=== PATIENT | female | born 1950 | race Caucasian/White ===

== ENCOUNTER 2016-12-18 16:15 | Observation (INO) | payer OTHER, MEDICARE ==
[2016-12-18] MEDS ORDERED: LOMOTIL PO PRN (16:54)
[2016-12-18 17:30] LABS: ALANINE AMINOTRANSFERASE 19 Units/L (12-78); ALBUMIN 2.9 g/dL (3.4-5.0); ALKALINE PHOSPHATASE 81 Units/L (46-116); ASPARTATE AMINO TRANSFERASE 27 Units/L (15-37); BLOOD UREA NITROGEN 23 mg/dL (7-18); CALCIUM 9.2 mg/dL (8.5-10.1); CHLORIDE 101 mmol/L (98-107); COR CA(FOR HYPOALB) 10.1 mg/dL (8.5-10.1); COR NA(FOR HYPERGLY) 135 mmol/L (136-145); CREATININE 0.95 mg/dL (0.55-1.02); GLUCOSE 194 mg/dL (65-99); SODIUM 133 mmol/L (136-145); TOTAL PROTEIN 7.5 g/dL (6.4-8.2); eGFR BLACK RACES > 60 (>60); eGFR NON BLACK RACES > 60 (>60)
[2016-12-18 17:36] VITALS: BMI 30.6
[2016-12-18 17:47] LABS: BASOPHILS # (AUTO) 0.1 X10^3/uL (0.0-0.1); EOSINOPHILS % (AUTO) 0.2 % (0.9-2.9); HEMATOCRIT 43.2 % (36.0-47.0); HEMOGLOBIN 14.7 g/dL (12.0-16.0); LYMPHOCYTES # (AUTO) 0.8 X10^3/uL (1.3-2.9); LYMPHOCYTES % (AUTO) 11.4 % (21.0-51.0); MEAN CORPUSCULAR HEMOGLOBIN 31.2 pg (27.0-34.0); MEAN CORPUSCULAR VOLUME 91.6 fL (80.0-100.0); MEAN PLATELET VOLUME 9.7 fL (7.4-11.0); MONOCYTES % (AUTO) 13.9 % (0.0-13.0); NEUTROPHILS # (AUTO) 5.1 x10^3/uL (2.2-4.8); NEUTROPHILS % (AUTO) 73.5 % (42.0-75.0); PLATELET COUNT 249 X10^3/uL (150.0-450.0); RED BLOOD COUNT 4.72 X10^6/uL (3.5-5.4); RED CELL DISTRIBUTION WIDTH 15.1 % (11.6-16.5); WHITE BLOOD COUNT 6.9 X10^3/uL (3.6-10.0)
--- NOTE | 2016-12-18 18:40 | RAD ---
HISTORY: Abdominal pain/diarrhea. Study: Acute abdominal series Comparison: CT chest dated November 17, [address] abdomen/pelvis dated January 17, 2016. Findings: The trachea is midline. The cardiac silhouette is unremarkable. Scarring within the left upper lob e appears unchanged given technique. No obvious focal consolidation, pleural effusion, or pneumothor ax. Surgical clips overlying the left breast and axilla. The bony thorax is unremarkable. Flat plate and upright evaluation of the abdomen demonstrates a nonspecific/nonobstructive bowel gas pattern with air and stool to the level of the rectum. No obvious free air. Surgical clips within t he right upper quadrant. No pathological soft tissue mass or calcification can be observed. The bon y structures are grossly intact. IMPRESSION: 1. No acute cardiopulmonary disease. 2. No evidence for acute abdominal pathology identified. Reported By:
[2016-12-18] MEDS: NS 1000 ML 1,000 ML IV SCH (18:45)
[2016-12-18] MEDS: FLAGYL IV PREMIX 500 MG BAG 500 MG/100 ML BAG IV SCH ×2 (18:45→21:12)
[2016-12-18 21:03] LABS: BILIRUBIN,URINE NEGATIVE (NEGATIVE); BLOOD/HEMOGLOBIN,URINE 3+ (NEGATIVE); GLUCOSE, URINE 4+ (NEGATIVE); KETONES,URINE 2+ (NEGATIVE); LEUKOCYTE ESTERASE ,URINE 2+ (NEGATIVE); NITRITES,URINE NEGATIVE (NEGATIVE); PROTEIN,URINE 2+ (NEGATIVE); UROBILINOGEN,URINE NORMAL (NORMAL)
[2016-12-18 21:09] LABS: APPEARANCE,URINE CLOUDY (CLEAR); COLOR,URINE YELLOW (YELLOW)
[2016-12-18 21:10] LABS: BACTERIA,URINE 3+ /HPF (NEGATIVE); SQUAMOUS EPITHELIAL CELL,UR RARE /HPF (NEGATIVE)
[2016-12-18 21:56] LABS: CRYPTOSPORIDIUM PARVUM ANTIGEN NEGATIVE (NEGATIVE); GIARDIA LAMBLIA ANTIGEN NEGATIVE (NEGATIVE)
[2016-12-18] MEDS ORDERED: NORCO 5/325 MG TAB PO PRN (23:45)
[2016-12-19] MEDS: NS 1000 ML 1,000 ML IV SCH ×2 (03:51→20:58)
[2016-12-19] MEDS: FLAGYL IV PREMIX 500 MG BAG 500 MG/100 ML BAG IV SCH (03:51)
[2016-12-19 05:35] LABS: EOSINOPHILS % (AUTO) 0.5 % (0.9-2.9); HEMATOCRIT 39.4 % (36.0-47.0); HEMOGLOBIN 13.3 g/dL (12.0-16.0); LYMPHOCYTES % (AUTO) 21.3 % (21.0-51.0); MEAN CORPUSCULAR HEMOGLOBIN 30.8 pg (27.0-34.0); MEAN CORPUSCULAR HGB CONC 33.9 g/dL (33.0-35.0); MEAN PLATELET VOLUME 10.7 fL (7.4-11.0); MONOCYTES # (AUTO) 0.8 x10^3/uL (0.3-0.8); MONOCYTES % (AUTO) 16.8 % (0.0-13.0); NEUTROPHILS # (AUTO) 2.9 x10^3/uL (2.2-4.8); NEUTROPHILS % (AUTO) 60.4 % (42.0-75.0); PLATELET COUNT 234 X10^3/uL (150.0-450.0); RED BLOOD COUNT 4.33 X10^6/uL (3.5-5.4); RED CELL DISTRIBUTION WIDTH 15.3 % (11.6-16.5); WHITE BLOOD COUNT 4.9 X10^3/uL (3.6-10.0)
[2016-12-19 05:37] LABS: ALANINE AMINOTRANSFERASE 18 Units/L (12-78); ALBUMIN 2.5 g/dL (3.4-5.0); ALKALINE PHOSPHATASE 73 Units/L (46-116); ASPARTATE AMINO TRANSFERASE 14 Units/L (15-37); BLOOD UREA NITROGEN 18 mg/dL (7-18); CALCIUM 8.1 mg/dL (8.5-10.1); CARBON DIOXIDE 23.2 mmol/L (21-32); CHLORIDE 103 mmol/L (98-107); COR CA(FOR HYPOALB) 9.3 mg/dL (8.5-10.1); COR NA(FOR HYPERGLY) 144 mmol/L (136-145); CREATININE 1.05 mg/dL (0.55-1.02); GLUCOSE 374 mg/dL (65-99); SODIUM 137 mmol/L (136-145); TOTAL PROTEIN 6.4 g/dL (6.4-8.2); eGFR BLACK RACES > 60 (>60); eGFR NON BLACK RACES 56 (>60)
[2016-12-19] MEDS ORDERED: K-LYTE EFFERVESCENT PO PRN (05:43)
[2016-12-19] MEDS ORDERED: K-RIDER 10 MEQ/NS 100 ML 10 MEQ/100 ML BAG IV PRN (05:43)
[2016-12-19] MEDS ORDERED: POTASSIUM CHLORIDE LIQ 20 MEQ UDC PO PRN (05:43)
[2016-12-19] MEDS: K-DUR TAB 20 MEQ PO PRN ×2 (06:06→23:27)
[2016-12-19] MEDS: MAGNESIUM SULFATE 1 GM/100 mL PREMIX 1 GM/100 ML BAG IV SCH ×2 (08:35→10:31)
[2016-12-19] MEDS: CIPRO IV 400 MG PREMIX* 400 MG/200 ML IV.SOLN. IV SCH ×2 (12:32→21:01)
[2016-12-19] MEDS ORDERED: HumuLIN R SUBCUT PRN (13:06)
[2016-12-19] MEDS ORDERED: OXYBUTYNIN CHLORIDE PO SCH (13:15)
--- NOTE | 2016-12-19 13:18 | DR.UPDATE ---
H&P Update History and Physical Update: WAS SEEN IN OUR OFFICE TODAY. A H&P WAS COMPLETED PRIOR TO ADMISSION. PATIENT HAS BEEN SEEN AND EXAMINED WITH NO CHANGES NOTED. Changes noted: NO Yes with the following:
[2016-12-19] MEDS ORDERED: COREG TAB 6.25 MG PO SCH (14:00)
[2016-12-19] MEDS ORDERED: SYNTHROID 25 mcg TAB PO SCH (14:00)
[2016-12-19] MEDS: LYRICA CAP 100 MG PO SCH ×2 (14:38→21:00)
[2016-12-19] MEDS: ZOCOR TAB 20 MG PO SCH (14:38)
[2016-12-19] MEDS: PEPCID 20 MG IV PREMIX* 20 MG/50 ML BAG IV SCH ×2 (14:38→21:00)
[2016-12-19] MEDS: ARIMIDEX PO SCH (14:46)
[2016-12-19] MEDS ORDERED: HumuLIN R SUBCUT ONE (19:15)
--- NOTE | 2016-12-19 19:27 | PCM.PROG ---
Progress Note - Progress Note for Day of Date: 12/19/16 - Subjective Subjective: WAS A DIRECT ADMISSION YESTERDAY FOR DEYHYDRATION, DIARRHEA, AND HYPOTENSION. SHE IS ALERT AND ORIENTED ON MORNING ROUNDS. PATIENT IS NOTED WITH COMPLAINTS OF ABDOMINAL PAIN AND REPORTS SEVERAL LOOSE BOWEL MOVEMENTS THROUGHOUT THE NIGHT. VITALS THIS AM WERE 98.5-80-20-93%-105/53. CBC REPORTS WBC 4.9, RBC 4.33, HGB 13.3, HCT 39.4. CMP REPORTS SODIUM 137, POTASSIUM 2.8, BUN 18, CREATININE 1.05, CALCIUM 8.21, AST 14, ALT 18, ALBUMIN 2.5, GLUCOSE 374, MAGESIUM 1.3. ABDOMINAL SERIES NORMAL. STOOL WAS POSITIVE FOR OCCULT BLOOD. CULTURE WAS POSITIVE FOR CAMPYLOBACTER SPECIES. WE WILL START CIPRO 400MG IV Q12H, DISCONTINUE FLAGYL IV, WE WILL RECHECK LABS AND FOLLOW UP WITH PATIENT IN AM. - Past Medical Family Social History Past Med/Fam/Surg Hx: No changes since H&P Allergies: Allergies No Known Drug Allergies Allergy (Verified 12/18/16 16:53) - Review of Systems ROS: No change since H&P - Vital Signs and I&O's Vital Signs: Temperature 97.9 F Pulse Rate [Right Radial] 77 Respiratory Rate 20 Blood Pressure [Right Arm] 97/54 Blood Pressure 128/65 O2 Sat by Pulse Oximetry 95 Intake and Output: Intake & Output 12/17/16 12/18/16 12/19/16 12/20/16 11:59 11:59 11:59 11:59 Intake Total 980 360 Balance 980 360 - Physical Exam Oriented: Normal. negative: Time, Person, Place, Not Oriented, Unable to test, Other Eyes: Normal. negative: Blurred Vision, Diplopia, Discharge, Pain, Redness, Photophobia, Other Ear: Normal. negative: Right, Left, Swelling, Ecchymosis, Hemotypanum, Abrasion , Laceration Nose: Normal. negative: Injected, Discharge, Blood, Other Throat: Normal. negative: Tonsillar Hypertrophy, Red, Exudate, Dry, Other Respiratory: Normal. negative: Right, Left, Generalized, Superior, Inferior, Diminished, Wheezes, Rales, Rhonchi, OTHER Cardiovascular: Normal. negative: Tachycardia, Bradycardia, Irregular, S3, S4, Systolic, Diastolic, Murmur, Edema, Other : Normal. negative: Dysuria, Hematuria, Frequency, Discharge, Testicular Pain , Bleeding, , Other Auscultation: Bowel Sounds: Normal. negative: Bruit, Absent, Increased, Decreased, High Pitched, Other Palpation: Normal Tenderness: Diffuse. negative: Normal, RUQ, RLQ, LUQ, LLQ, Epigastric, Periumbilical, Suprapubic, Mild, Moderate, Severe, Rebound, Guarding, Rigidity, Other Skin: Normal. negative: Decreased Turgur, Rash, Papular, Macular, Maculopapular , Vesicular, Pustular, Petechial, Red, Tender, Hot, Diaphoresis, Wound, Bruising , Ecchymosis, Other Musculoskeletal: Normal. negative: Right, Left, Shoulder, Clavicle, Arm, Elbow , Forearm, Wrist, Hand, Hip, Thigh, Knee, Leg, Ankle, Foot, Back:Thoracic, Back: Lumbar, Back:Midline, Back:Paraspinous, Pelvis, Swelling, Tender, Deformity, Pulse Deficit, Motor Deficit, Sensory Deficit, Instability, Crepitance Psychiatric: Normal. negative: Anxiety, Depression, Agitation, Other Mood Description: Calm. negative: Angry, Apathetic, Depressed, Fearful, Flat, Happy, Hostile, Sad, Suspicious, Withdrawn, Anxious, Appropriate, Labile Affect: Normal. negative: Angry, Anxious, Depressed, Flat, Hysterical, Quiet, Violent Speech Pattern: Clear, Appropriate - Laboratory and Diagnostics Result Diagrams: 12/19/16 04:05 12/19/16 18:25 Labs: 12/18/16 20:55 Urine,Clean Catch Urine Culture - Preliminary 12/18/16 20:55 Stool Stool Culture - Preliminary Campylobacter Species 12/18/16 20:55 Stool - Final Laboratory WBC 4.9 X10^3/uL (3.6-10.0) 12/19/16 04:05 RBC 4.33 X10^6/uL (3.5-5.4) 12/19/16 04:05 Hgb 13.3 g/dL (12.0-16.0) 12/19/16 04:05 Hct 39.4 % (36.0-47.0) 12/19/16 04:05 MCV 91.0 fL (80.0-100.0) 12/19/16 04:05 MCH 30.8 pg (27.0-34.0) 12/19/16 04:05 MCHC 33.9 g/dL (33.0-35.0) 12/19/16 04:05 RDW 15.3 % (11.6-16.5) 12/19/16 04:05 Plt Count 234 X10^3/uL (150.0-450.0) 12/19/16 04:05 MPV 10.7 fL (7.4-11.0) 12/19/16 04:05 Neut % 60.4 % (42.0-75.0) 12/19/16 04:05 Lymph % 21.3 % (21.0-51.0) 12/19/16 04:05 [place] % 16.8 % (0.0-13.0) H 12/19/16 04:05 Eos % 0.5 % (0.9-2.9) L 12/19/16 04:05 Baso % 1.0 % (0.2-1.0) 12/19/16 04:05 Neut # 2.9 x10^3/uL (2.2-4.8) 12/19/16 04:05 Lymph # 1.0 X10^3/uL (1.3-2.9) L 12/19/16 04:05 [place] # 0.8 x10^3/uL (0.3-0.8) 12/19/16 04:05 Eos # 0.0 x10^3/uL (0.0-0.2) 12/19/16 04:05 Baso # 0.0 X10^3/uL (0.0-0.1) 12/19/16 04:05 Absolute Nucleated RBC 0.1 /100WBC 12/19/16 04:05 Sodium 137 mmol/L (136-145) 12/19/16 04:05 Corrected Sodium 144 mmol/L (136-145) 12/19/16 04:05 Potassium 3.3 mmol/L (3.5-5.1) L 12/19/16 08:10 Chloride 103 mmol/L (98-107) 12/19/16 04:05 Carbon Dioxide 23.2 mmol/L (21-32) 12/19/16 04:05 BUN 18 mg/dL (7-18) 12/19/16 04:05 Creatinine 1.05 mg/dL (0.55-1.02) H 12/19/16 04:05 Est GFR (MDRD) Af Amer > 60 (>60) 12/19/16 04:05 Est GFR (MDRD) Non-Af 56 (>60) L 12/19/16 04:05 Glucose 510 mg/dL (65-99) H* 12/19/16 18:25 Calcium 8.1 mg/dL (8.5-10.1) L 12/19/16 04:05 Corrected Calcium 9.3 mg/dL (8.5-10.1) 12/19/16 04:05 Magnesium 1.3 mg/dL (1.7-2.9) L 12/19/16 04:05 Total Bilirubin 0.60 mg/dL (0.2-1.0) 12/19/16 04:05 AST 14 Units/L (15-37) L 12/19/16 04:05 ALT 18 Units/L (12-78) 12/19/16 04:05 Alkaline Phosphatase 73 Units/L (46-116) 12/19/16 04:05 Total Protein 6.4 g/dL (6.4-8.2) 12/19/16 04:05 Albumin 2.5 g/dL (3.4-5.0) L 12/19/16 04:05 Globulin 3.9 g/dL (2.5-4.5) 12/19/16 04:05 Albumin/Globulin Ratio 0.6 Ratio (1.1-2.1) L 12/19/16 04:05 Specimen Type Clean catch urine 12/18/16 20:55 Urine Color Yellow (YELLOW) 12/18/16 20:55 Urine Appearance Cloudy (CLEAR) 12/18/16 20:55 Urine pH 6.0 (5.0 - 8.0) 12/18/16 20:55 Ur Specific [place] 1.020 (1.000-1.030) 12/18/16 20:55 Urine Protein 2+ (NEGATIVE) 12/18/16 20:55 Urine Glucose (UA) 4+ (NEGATIVE) 12/18/16 20:55 Urine Ketones 2+ (NEGATIVE) 12/18/16 20:55 Urine Occult Blood 3+ (NEGATIVE) 12/18/16 20:55 Urine Nitrite Negative (NEGATIVE) 12/18/16 20:55 Urine Bilirubin Negative (NEGATIVE) 12/18/16 20:55 Urine Urobilinogen Normal (NORMAL) 12/18/16 20:55 Ur Leukocyte Esterase 2+ (NEGATIVE) 12/18/16 20:55 Urine RBC 3-5 /HPF (NEGATIVE) 12/18/16 20:55 Urine WBC 10-15 /HPF (NEGATIVE) 12/18/16 20:55 Ur Squamous Epith Cells Rare /HPF (NEGATIVE) 12/18/16 20:55 Urine Bacteria 3+ /HPF (NEGATIVE) 12/18/16 20:55 Ur Culture Indicated? Yes/culture set up 12/18/16 20:55 Stool Description 150 g liquid,brown 12/18/16 20:55 Stl Occult Blood (IFOB) Positive (NEGATIVE) A 12/18/16 20:55 Stool for White Cells No wbc's seen (None) 12/18/16 20:55 Stl C. diff Tox B Gene Negative (NEGATIVE) 12/18/16 20:55 Stl C. diff [id number] Negative (NEGATIVE) 12/18/16 20:55 Cryptosporid parvum Ag Negative (NEGATIVE) 12/18/16 20:55 E. histolytica Antigen Negative (NEGATIVE) 12/18/16 20:55 Giardia lamblia Ag Negative (NEGATIVE) 12/18/16 20:55 - Plan (1) Dehydration Status: Acute Plan: CONTINUE NS @ 80ML/HR, MONITOR LABS (2) Diarrhea Status: Acute Qualifiers: Diarrhea type: unspecified type Qualified Code(s): R19.7 - Diarrhea, unspecified Plan: LOMOTIL 2 TABS QID, NS @ 80ML/HR, CONTINUE TO MONITOR (3) Hypotension Status: Acute Qualifiers: Hypotension type: unspecified hypotension type Trimester: T Qualified Code(s): I95.9 - Hypotension, unspecified Plan: NS @ 80ML/HR, CONTINUE TO MONITOR
[2016-12-19] MEDS ORDERED: SNACK - Diabetic Appropriate PO SCH ×2 (20:00)
[2016-12-19] MEDS ORDERED: KLONOPIN TAB 0.5 MG PO SCH (21:00)
[2016-12-19] MEDS: DITROPAN TAB 5 MG PO SCH (21:00)
[2016-12-19] MEDS: LANTUS SC SCH (21:04)
[2016-12-20] MEDS ORDERED: HALDOL INJ IM ONE (04:03)
[2016-12-20 05:08] LABS: ALANINE AMINOTRANSFERASE 16 Units/L (12-78); ALBUMIN 2.5 g/dL (3.4-5.0); ALKALINE PHOSPHATASE 75 Units/L (46-116); ASPARTATE AMINO TRANSFERASE 15 Units/L (15-37); BLOOD UREA NITROGEN 12 mg/dL (7-18); CALCIUM 8.1 mg/dL (8.5-10.1); CARBON DIOXIDE 25.4 mmol/L (21-32); CHLORIDE 107 mmol/L (98-107); COR CA(FOR HYPOALB) 9.3 mg/dL (8.5-10.1); COR NA(FOR HYPERGLY) 142 mmol/L (136-145); CREATININE 0.85 mg/dL (0.55-1.02); GLUCOSE 173 mg/dL (65-99); MAGNESIUM 1.7 mg/dL (1.7-2.9); SODIUM 140 mmol/L (136-145); TOTAL PROTEIN 6.5 g/dL (6.4-8.2); eGFR BLACK RACES > 60 (>60); eGFR NON BLACK RACES > 60 (>60)
[2016-12-20 05:09] LABS: BASOPHILS # (AUTO) 0.1 X10^3/uL (0.0-0.1); EOSINOPHILS # (AUTO) 0.3 x10^3/uL (0.0-0.2); EOSINOPHILS % (AUTO) 4.9 % (0.9-2.9); HEMATOCRIT 37.2 % (36.0-47.0); HEMOGLOBIN 12.7 g/dL (12.0-16.0); LYMPHOCYTES # (AUTO) 1.3 X10^3/uL (1.3-2.9); LYMPHOCYTES % (AUTO) 23.9 % (21.0-51.0); MEAN CORPUSCULAR HEMOGLOBIN 31.1 pg (27.0-34.0); MEAN CORPUSCULAR HGB CONC 34.1 g/dL (33.0-35.0); MEAN CORPUSCULAR VOLUME 91.2 fL (80.0-100.0); MEAN PLATELET VOLUME 10.2 fL (7.4-11.0); MONOCYTES % (AUTO) 17.7 % (0.0-13.0); NEUTROPHILS # (AUTO) 2.8 x10^3/uL (2.2-4.8); NEUTROPHILS % (AUTO) 52.5 % (42.0-75.0); PLATELET COUNT 238 X10^3/uL (150.0-450.0); RED BLOOD COUNT 4.08 X10^6/uL (3.5-5.4); RED CELL DISTRIBUTION WIDTH 15.1 % (11.6-16.5); WHITE BLOOD COUNT 5.4 X10^3/uL (3.6-10.0)
[2016-12-20] MEDS: K-DUR TAB 20 MEQ PO PRN (06:08)
[2016-12-20] MEDS ORDERED: SYNTHROID 50 mcg TAB PO SCH (07:00)
[2016-12-20] MEDS: NS 1000 ML 1,000 ML IV SCH (07:33)
[2016-12-20] MEDS: ARIMIDEX PO SCH (08:37)
[2016-12-20] MEDS: CIPRO IV 400 MG PREMIX* 400 MG/200 ML IV.SOLN. IV SCH (08:38)
[2016-12-20] MEDS: LANTUS SC SCH (08:38)
[2016-12-20] MEDS: LYRICA CAP 100 MG PO SCH (08:38)
[2016-12-20] MEDS: PEPCID 20 MG IV PREMIX* 20 MG/50 ML BAG IV SCH (08:38)
[2016-12-20] MEDS: DITROPAN TAB 5 MG PO SCH (08:38)
[2016-12-20] MEDS: ZOCOR TAB 20 MG PO SCH (08:39)
[2016-12-20 08:57] VITALS: BP 92/48
[2016-12-20] MEDS ORDERED: PREVACID PO SCH (09:00)
--- NOTE | 2016-12-21 11:51 | DR.CARTERD ---
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 HER SYMPTOMS STARTED 3 DAYS PRIOR TO PRESENTING AT OUR OFFICE. SHE STATED THAT SHE HAS BEEN HAVING > 8 EPISODES OF DIARRHEA PER DAY AND THE ONLY THING THAT MAKES IT BETTER IS NOT EATING. WE ADMITTED PATIENT FOR FURTHER TREATMENT AND EVALUATION. WE PLANNED TO CHECK CBC, CMP, AND STOOL STUDIES ON ADMISSION. WE STARTED HER ON NORMAL SALINE , FLAGYL 500MG IV, AND LOMOTIL. ON ADMISSION, CBC WNL. CMP WNL EXCEPT SODIUM 133 , BUN 23, GLUCOSE 194, ALBUMIN 2.9. ABDOMINAL XRAY CLEAR. STOOL CULTURE POSITIVE FOR CAMPYLOBACTER SPECIES AND POSITIVE FOR OCCULT BLOOD. URINALYSIS REPORTED WBC 10-15, LEUKOCYTES 2+, BACTERIA 3+. THE MORNING AFTER ADMISSION, WE DISCONTINUED FLAGYL AND STARTED PATIENT ON CIPRO 400MG IV BID FOR CAMPY AND UTI. ON THE DAY OF DISCHARGE, PATIENT IS ALERT AND ORIENTED ON ROUNDS. SHE REPORTS FEELING BETTER AND HAS NO COMPLAINTS. VITALS WERE 97.9-53-18-95%-92/48. CBC WNL. CMP WNL EXCEPT GLUCOSE 173, CALCIUM 8.1, ALBUMIN 2.5. WE PLANNED FOR DISCHARGE. INSTRUCTIONS FOR MEDICATIONS AND FOLLOW UP WERE DISCUSSED WITH PATIENT. SHE VERBALIZED UNDERSTANDING. WE WILL DISCHARGE HER HOME WITH A PRESCRIPTION FOR CIPRO 500 MG PO BID X 10 DAYS AND LOMOTIL 1 TAB PO QID PRN. SHE WILL ALSO CONTINUE ON HER PREVIOUS HOME MEDICATIONS. PATIENT DISCHARGED HOME IN STABLE CONDITION WITH INSTRUCTIONS TO FOLLOW UP IN OFFICE NEXT WEEK. - Discharge Medications Discharge Medications: Clonazepam 1 tab PO HS 12/19/16 [History] Famotidine [Famotidine 20 mg] 1 tab PO DAILY 12/19/16 [History] Insulin Glargine (Lantus) [LANTUS INSULIN 10 ML VIAL *] 22 units SUBCUT BID [History] Lansoprazole [PREVACID 30 MG *] 1 cap PO DAILY 12/19/16 [History] Oxybutynin Chloride [Oxybutynin Chloride ER] 1 tab PO DAILY 12/19/16 [History] Ciprofloxacin HCl [CIPRO 500 MG TAB *] 500 mg PO Q12H #20 tab 12/20/16 [Rx] Diphenoxylate/Atropine [LOMOTIL TAB *] 1 tab PO QID PRN #16 tab 12/20/16 [Rx]
== END 2016-12-20 11:35 | disposition home or self-care (01) ==
LOC: MED/SURG 16:15
PROVIDERS: ADMIT Internal Medicine; ATTEND Internal Medicine
DX: E86.0 Dehydration (principal); R19.7 Diarrhea, unspecified; I95.89 Other hypotension; R10.84 Generalized abdominal pain; E11.65 Type 2 diabetes mellitus with hyperglycemia; E03.8 Other specified hypothyroidism; E78.2 Mixed hyperlipidemia; B96.1 Klebsiella pneumoniae [K. pneumoniae] as the cause of diseases classified elsewhere; A04.5 Campylobacter enteritis; R44.2 Other hallucinations; K92.1 Melena
CPT/HCPCS: 36415; 74022; 80053; 81001; 82270; 82947; 83735; 84132; 85025; 87045; 87086; 87088; 87186; 87205; 87328; 87329; 87336; 87427; 87493; 87899; A4216; A4222; S0028; S0030; S0170; G0378; J0744; J1630; J1815

== ENCOUNTER → 2017-04-10 | Outpatient (CLI) | payer OTHER, MEDICARE ==
[2017-04-10 09:46] LABS: CRYPTOSPORIDIUM PARVUM ANTIGEN NEGATIVE (NEGATIVE); GIARDIA LAMBLIA ANTIGEN NEGATIVE (NEGATIVE)
[2017-04-10 09:59] LABS: STOOL FOR WBC NEGATIVE (NEGATIVE)
== END ==
LOC: LAB 08:22
PROVIDERS: ATTEND Internal Medicine
DX: R19.7 Diarrhea, unspecified (principal)
CPT/HCPCS: 82270; 83630; 87045; 87328; 87329; 87336; 87427; 87493; 87899

== ENCOUNTER → 2017-06-28 | Outpatient (CLI) | payer OTHER, MEDICARE ==
[2017-06-28 10:43] LABS: CRYPTOSPORIDIUM PARVUM ANTIGEN NEGATIVE (NEGATIVE); GIARDIA LAMBLIA ANTIGEN NEGATIVE (NEGATIVE); STOOL FOR WBC NEGATIVE (NEGATIVE)
== END ==
LOC: LAB 09:55
PROVIDERS: ATTEND Internal Medicine
DX: R19.7 Diarrhea, unspecified (principal)
CPT/HCPCS: 82270; 83630; 87045; 87328; 87329; 87336; 87427; 87493; 87899

== ENCOUNTER 2017-07-23 11:33 | Inpatient (IN) | payer OTHER, MEDICARE ==
[2017-07-23 15:18] LABS: BASOPHILS # (AUTO) 0.1 X10^3/uL (0.0-0.1); EOSINOPHILS # (AUTO) 0.3 x10^3/uL (0.0-0.2); EOSINOPHILS % (AUTO) 4.5 % (0.9-2.9); HEMATOCRIT 38.6 % (36.0-47.0); HEMOGLOBIN 13.2 g/dL (12.0-16.0); LYMPHOCYTES # (AUTO) 1.6 X10^3/uL (1.3-2.9); LYMPHOCYTES % (AUTO) 25.9 % (21.0-51.0); MEAN CORPUSCULAR HEMOGLOBIN 32.1 pg (27.0-34.0); MEAN CORPUSCULAR VOLUME 94.4 fL (80.0-100.0); MEAN PLATELET VOLUME 8.5 fL (7.4-11.0); MONOCYTES # (AUTO) 0.5 x10^3/uL (0.3-0.8); MONOCYTES % (AUTO) 8.4 % (0.0-13.0); NEUTROPHILS # (AUTO) 3.8 x10^3/uL (2.2-4.8); NEUTROPHILS % (AUTO) 60.2 % (42.0-75.0); PLATELET COUNT 324 X10^3/uL (150.0-450.0); RED BLOOD COUNT 4.09 X10^6/uL (3.5-5.4); RED CELL DISTRIBUTION WIDTH 13.5 % (11.6-16.5); WHITE BLOOD COUNT 6.3 X10^3/uL (3.6-10.0)
[2017-07-23] MEDS: NS 1000 ML 1,000 ML IV SCH ×2 (15:23→23:08)
[2017-07-23] MEDS: VANCOMYCIN HCL PO SCH ×2 (15:24→21:32)
[2017-07-23 15:31] LABS: ALANINE AMINOTRANSFERASE 35 Units/L (12-78); ALBUMIN 3.3 g/dL (3.4-5.0); ALKALINE PHOSPHATASE 54 Units/L (46-116); ASPARTATE AMINO TRANSFERASE 23 Units/L (15-37); BLOOD UREA NITROGEN 29 mg/dL (7-18); CARBON DIOXIDE 27.5 mmol/L (21-32); CHLORIDE 104 mmol/L (98-107); COR CA(FOR HYPOALB) 9.6 mg/dL (8.5-10.1); COR NA(FOR HYPERGLY) 141 mmol/L (136-145); CREATININE 0.67 mg/dL (0.55-1.02); SODIUM 139 mmol/L (136-145); eGFR BLACK RACES > 60 (>60); eGFR NON BLACK RACES > 60 (>60)
[2017-07-23 16:28] VITALS: BMI 27.3
[2017-07-23 20:48] LABS: BILIRUBIN,URINE NEGATIVE (NEGATIVE); BLOOD/HEMOGLOBIN,URINE NEGATIVE (NEGATIVE); GLUCOSE, URINE 4+ (NEGATIVE); KETONES,URINE NEGATIVE (NEGATIVE); LEUKOCYTE ESTERASE ,URINE NEGATIVE (NEGATIVE); NITRITES,URINE NEGATIVE (NEGATIVE); PROTEIN,URINE NEGATIVE (NEGATIVE); UROBILINOGEN,URINE NORMAL (NORMAL)
[2017-07-23 20:58] LABS: APPEARANCE,URINE CLEAR (CLEAR); COLOR,URINE YELLOW (YELLOW)
[2017-07-23 20:59] LABS: BACTERIA,URINE 1+ /HPF (NEGATIVE); RBC,URINE NONE SEEN /HPF (NONE SEEN); SQUAMOUS EPITHELIAL CELL,UR NEGATIVE /HPF (NEGATIVE)
[2017-07-23] MEDS: PEPCID TAB 20 MG PO SCH (21:32)
[2017-07-24] MEDS: VANCOMYCIN HCL PO SCH ×4 (03:05→21:56)
[2017-07-24] MEDS: NS 1000 ML 1,000 ML IV SCH ×4 (05:45→22:59)
[2017-07-24 06:26] LABS: BASOPHILS # (AUTO) 0.1 X10^3/uL (0.0-0.1); BASOPHILS % (AUTO) 2.5 % (0.2-1.0); EOSINOPHILS # (AUTO) 0.4 x10^3/uL (0.0-0.2); EOSINOPHILS % (AUTO) 6.9 % (0.9-2.9); HEMATOCRIT 37.3 % (36.0-47.0); HEMOGLOBIN 12.8 g/dL (12.0-16.0); LYMPHOCYTES # (AUTO) 2.3 X10^3/uL (1.3-2.9); LYMPHOCYTES % (AUTO) 43.7 % (21.0-51.0); MEAN CORPUSCULAR HEMOGLOBIN 32.1 pg (27.0-34.0); MEAN CORPUSCULAR HGB CONC 34.3 g/dL (33.0-35.0); MEAN CORPUSCULAR VOLUME 93.4 fL (80.0-100.0); MEAN PLATELET VOLUME 9.9 fL (7.4-11.0); MONOCYTES # (AUTO) 0.8 x10^3/uL (0.3-0.8); MONOCYTES % (AUTO) 14.9 % (0.0-13.0); NEUTROPHILS # (AUTO) 1.7 x10^3/uL (2.2-4.8); PLATELET COUNT 147 X10^3/uL (150.0-450.0); RED BLOOD COUNT 3.99 X10^6/uL (3.5-5.4); RED CELL DISTRIBUTION WIDTH 13.3 % (11.6-16.5); WHITE BLOOD COUNT 5.2 X10^3/uL (3.6-10.0)
[2017-07-24 06:54] LABS: ALANINE AMINOTRANSFERASE 36 Units/L (12-78); ALBUMIN 2.9 g/dL (3.4-5.0); ALKALINE PHOSPHATASE 44 Units/L (46-116); ASPARTATE AMINO TRANSFERASE 26 Units/L (15-37); BLOOD UREA NITROGEN 20 mg/dL (7-18); CALCIUM 8.8 mg/dL (8.5-10.1); CARBON DIOXIDE 22.2 mmol/L (21-32); CHLORIDE 108 mmol/L (98-107); COR CA(FOR HYPOALB) 9.7 mg/dL (8.5-10.1); CREATININE 0.51 mg/dL (0.55-1.02); SODIUM 142 mmol/L (136-145); TOTAL PROTEIN 6.5 g/dL (6.4-8.2); eGFR BLACK RACES > 60 (>60); eGFR NON BLACK RACES > 60 (>60)
[2017-07-24 07:31] LABS: PLATELET MORPHOLOGY COMMENT NORMAL (NORMAL)
[2017-07-24] MEDS: PEPCID TAB 20 MG PO SCH ×2 (08:30→21:56)
[2017-07-24 10:08] LABS: CRYPTOSPORIDIUM PARVUM ANTIGEN NEGATIVE (NEGATIVE); GIARDIA LAMBLIA ANTIGEN NEGATIVE (NEGATIVE)
[2017-07-24 10:09] LABS: STOOL FOR WBC POSITIVE (NEGATIVE)
--- NOTE | 2017-07-24 10:20 | DR.UPDATE ---
H&P Update History and Physical Update: WAS SEEN IN THE OFFICE ON 12/20/2017. SHE WAS ADMITTED FOR REFRACTORY C-DIFF, UNCONTROLLED DIARRHEA. A H&P WAS COMPLETED PRIOR TO ADMISSION. PATIENT HAS BEEN SEEN AND EXAMINED WITH NO CHANGES NOTED TO H&P. Changes noted: NO Yes with the following:
[2017-07-24] MEDS ORDERED: OXYBUTYNIN CHLORIDE PO SCH (10:30)
[2017-07-24] MEDS: HumuLIN R SUBCUT PRN ×3 (12:25→21:57)
[2017-07-24] MEDS: COREG TAB 6.25 MG PO SCH ×2 (12:26→21:55)
[2017-07-24] MEDS: ARIMIDEX PO SCH (12:26)
[2017-07-24] MEDS: ZOCOR TAB 20 MG PO SCH (12:26)
[2017-07-24] MEDS: LYRICA CAP 100 MG PO SCH ×2 (12:26→21:56)
[2017-07-24] MEDS: ALBUMIN HUMAN 25%- 100ML 100 ML IV SCH (12:26)
[2017-07-24] MEDS: DAPAGLIFLOZIN PROPANEDIOL 5 MG PO SCH (12:32)
--- NOTE | 2017-07-24 15:55 | DR.CONSULT ---
Consult - Consultation for Day of: Date: 07/24/17 - Chief Complaint Chief Complaint: Patient referred for Recurrent C-Diff and diarrhea. Patient with complaints of diarrhea. - Allergies Allergies/Adverse Reactions: Allergies Allergy/AdvReac Type Severity Reaction Status Date / Time No Known Drug Allergies Allergy Verified 12/18/16 16:53 - History of Present Illness History of Present Illness: Patient referred for Recurrent C-Diff and diarrhea. Patient with complaints of diarrhea that has been going on for several years and goten worse over the past few months. Patient was diagnosed with C-diff in April 2017, C-Diff this hospital was negative. She has been having fecal incontinence as well. Patient denies dysphagia, nausea, vomiting, abdominal pain , constipation, melena and hematochezia. Last colonoscopy was 07/07/2014 which showed internal hemorrhoids and was a very poor prep. Last EGD was 08/07/12 which showed moderate gastritits distal esophagitits and mildly dilated stomach. 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 - Past Medical History Past Medical History: Coronary Artery Disease, Diabetes, Dyslipidemia, GERD Additional Medical History: breast cancer - Past Surgical History Surgical History: Appendectomy, Cholecystectomy, Joint Replacement, Mastectomy, Ortho Surgery, Spleenectomy, Thyroidectomy, Tonsillectomy, Other - Family History Family Medical History: Diabetes Mellitus - Social History Does any household member use tobacco: No Alcohol Use: None Drug Use: Prescription Drugs - Medications Home Medications: Dapagliflozin Propanediol [Farxiga] 5 mg PO DAILY 07/23/17 [History Confirmed ] - Review of Systems Constitutional: No Symptoms Reported Eyes: No Symptoms Reported ENT: No Symptoms Reported Respiratory: No Symptoms Reported Cardiovascular: No Symptoms Reported Gastrointestinal: See HPI, Diarrhea. denies: Nausea, Vomiting, Abdominal Pain, Constipation, Melena, Hematochezia Genitourinary: No Symptoms Reported Musculoskeletal: No Symptoms Reported Skin: No Symptoms Reported Neurological: No Symptoms Reported - Physical Exam Vital Signs: Temperature 98.3 F Pulse Rate [Right Brachial] 54 Respiratory Rate 20 Blood Pressure [Right Arm] 135/63 Blood Pressure 92/48 O2 Sat by Pulse Oximetry 96 Oriented: Normal Eyes: Normal Ear: Normal Nose: Normal Throat: Normal Respiratory: Clear Throughout Cardiovascular: Normal : Normal Auscultation: Bowel Sounds: Normal Palpation: Normal, Other (no distention). negative: Spleen Enlarged, Liver Enlarged, Mass Pulsatile Tenderness: Normal (no tenderness) Skin: Normal Musculoskeletal: Normal Psychiatric: Normal Mood Description: Calm Affect: Normal Speech Pattern: Clear - Plan Plan: Assessment. 1. Chronic diarrhea, patient with recent C-Diff infection, stool studies negative r/o inflammatory bowel disease. 2. GERD. Plan. 1. Colonoscopy . 2. Cont pepcid
[2017-07-24] MEDS: KLONOPIN TAB 0.5 MG PO SCH (21:55)
[2017-07-24] MEDS: SNACK - Diabetic Appropriate PO SCH (21:59)
[2017-07-25] MEDS: VANCOMYCIN HCL PO SCH ×4 (03:26→22:22)
[2017-07-25] MEDS: NS 1000 ML 1,000 ML IV SCH ×3 (06:07→22:21)
[2017-07-25 06:57] LABS: BASOPHILS # (AUTO) 0.1 X10^3/uL (0.0-0.1); BASOPHILS % (AUTO) 1.2 % (0.2-1.0); EOSINOPHILS # (AUTO) 0.2 x10^3/uL (0.0-0.2); EOSINOPHILS % (AUTO) 3.6 % (0.9-2.9); HEMATOCRIT 39.7 % (36.0-47.0); HEMOGLOBIN 13.5 g/dL (12.0-16.0); LYMPHOCYTES # (AUTO) 1.5 X10^3/uL (1.3-2.9); LYMPHOCYTES % (AUTO) 23.7 % (21.0-51.0); MEAN CORPUSCULAR HEMOGLOBIN 32.1 pg (27.0-34.0); MEAN CORPUSCULAR HGB CONC 33.9 g/dL (33.0-35.0); MEAN CORPUSCULAR VOLUME 94.6 fL (80.0-100.0); MEAN PLATELET VOLUME 10.3 fL (7.4-11.0); MONOCYTES # (AUTO) 0.6 x10^3/uL (0.3-0.8); MONOCYTES % (AUTO) 8.8 % (0.0-13.0); NEUTROPHILS # (AUTO) 4.1 x10^3/uL (2.2-4.8); NEUTROPHILS % (AUTO) 62.7 % (42.0-75.0); PLATELET COUNT 192 X10^3/uL (150.0-450.0); RED CELL DISTRIBUTION WIDTH 13.4 % (11.6-16.5); WHITE BLOOD COUNT 6.5 X10^3/uL (3.6-10.0)
[2017-07-25 07:03] LABS: PLATELET MORPHOLOGY COMMENT NORMAL (NORMAL)
[2017-07-25 07:11] LABS: ALANINE AMINOTRANSFERASE 36 Units/L (12-78); ALBUMIN 3.5 g/dL (3.4-5.0); ALKALINE PHOSPHATASE 48 Units/L (46-116); ASPARTATE AMINO TRANSFERASE 28 Units/L (15-37); BLOOD UREA NITROGEN 15 mg/dL (7-18); CALCIUM 8.8 mg/dL (8.5-10.1); CARBON DIOXIDE 23.3 mmol/L (21-32); CHLORIDE 107 mmol/L (98-107); COR NA(FOR HYPERGLY) 145 mmol/L (136-145); CREATININE 0.48 mg/dL (0.55-1.02); SODIUM 142 mmol/L (136-145); TOTAL PROTEIN 6.9 g/dL (6.4-8.2); eGFR BLACK RACES > 60 (>60); eGFR NON BLACK RACES > 60 (>60)
[2017-07-25] MEDS: ARIMIDEX PO SCH (10:15)
[2017-07-25] MEDS: LYRICA CAP 100 MG PO SCH ×2 (10:15→20:52)
[2017-07-25] MEDS: COREG TAB 6.25 MG PO SCH ×2 (10:15→20:52)
[2017-07-25] MEDS: PEPCID TAB 20 MG PO SCH ×2 (10:15→20:51)
[2017-07-25] MEDS: SYNTHROID 50 mcg TAB PO SCH (10:15)
[2017-07-25] MEDS: ZOCOR TAB 20 MG PO SCH (10:16)
[2017-07-25] MEDS: OXYBUTYNIN CHLORIDE ER PO SCH (10:16)
[2017-07-25] MEDS: DAPAGLIFLOZIN PROPANEDIOL 5 MG PO SCH (10:21)
[2017-07-25] MEDS: ALBUMIN HUMAN 25%- 100ML 100 ML IV SCH (11:00)
[2017-07-25] MEDS ORDERED: NULYTELY or GO-LYTELY PO SCH (14:00)
[2017-07-25] MEDS ORDERED: DULCOLAX TAB EC 5 MG PO ONE ×2 (15:00→20:00)
[2017-07-25] MEDS: KLONOPIN TAB 0.5 MG PO SCH (20:51)
[2017-07-25] MEDS: SNACK - Diabetic Appropriate PO SCH (20:54)
[2017-07-26] MEDS: VANCOMYCIN HCL PO SCH ×4 (03:09→20:27)
[2017-07-26] MEDS: NS 1000 ML 1,000 ML IV SCH ×4 (05:55→22:32)
[2017-07-26 06:49] LABS: EOSINOPHILS # (AUTO) 0.4 x10^3/uL (0.0-0.2); EOSINOPHILS % (AUTO) 8.9 % (0.9-2.9); HEMATOCRIT 39.4 % (36.0-47.0); HEMOGLOBIN 13.6 g/dL (12.0-16.0); LYMPHOCYTES # (AUTO) 1.4 X10^3/uL (1.3-2.9); LYMPHOCYTES % (AUTO) 31.8 % (21.0-51.0); MEAN CORPUSCULAR HEMOGLOBIN 32.4 pg (27.0-34.0); MEAN CORPUSCULAR HGB CONC 34.4 g/dL (33.0-35.0); MEAN PLATELET VOLUME 9.9 fL (7.4-11.0); MONOCYTES # (AUTO) 0.6 x10^3/uL (0.3-0.8); NEUTROPHILS % (AUTO) 44.3 % (42.0-75.0); PLATELET COUNT 235 X10^3/uL (150.0-450.0); RED BLOOD COUNT 4.19 X10^6/uL (3.5-5.4); RED CELL DISTRIBUTION WIDTH 13.2 % (11.6-16.5); WHITE BLOOD COUNT 4.5 X10^3/uL (3.6-10.0)
[2017-07-26 07:14] LABS: ALANINE AMINOTRANSFERASE 46 Units/L (12-78); ALBUMIN 3.7 g/dL (3.4-5.0); ALKALINE PHOSPHATASE 50 Units/L (46-116); ASPARTATE AMINO TRANSFERASE 36 Units/L (15-37); BLOOD UREA NITROGEN 11 mg/dL (7-18); CALCIUM 9.4 mg/dL (8.5-10.1); CARBON DIOXIDE 24.3 mmol/L (21-32); CHLORIDE 106 mmol/L (98-107); COR NA(FOR HYPERGLY) 145 mmol/L (136-145); SODIUM 143 mmol/L (136-145); TOTAL PROTEIN 7.2 g/dL (6.4-8.2); eGFR BLACK RACES > 60 (>60); eGFR NON BLACK RACES > 60 (>60)
[2017-07-26] MEDS ORDERED: XYLOCAINE 2 % (PLAIN) ONE (07:49)
[2017-07-26] MEDS ORDERED: DIPRIVAN VIAL 20 ML ONE (07:49)
[2017-07-26] MEDS: ALBUMIN HUMAN 25%- 100ML 100 ML IV SCH (09:58)
[2017-07-26] MEDS: ARIMIDEX PO SCH (09:59)
[2017-07-26] MEDS: LYRICA CAP 100 MG PO SCH ×2 (10:00→20:26)
[2017-07-26] MEDS: COREG TAB 6.25 MG PO SCH ×2 (10:00→20:27)
[2017-07-26] MEDS: ZOCOR TAB 20 MG PO SCH (10:00)
[2017-07-26] MEDS: PEPCID TAB 20 MG PO SCH ×2 (10:00→20:27)
[2017-07-26] MEDS: DAPAGLIFLOZIN PROPANEDIOL 5 MG PO SCH (10:01)
[2017-07-26] MEDS: OXYBUTYNIN CHLORIDE ER PO SCH (10:08)
--- NOTE | 2017-07-26 13:16 | PCM.PROG ---
Progress Note - Progress Note for Day of Date: 07/24/17 - Subjective Subjective: IS BEING TREATED FOR REFRACTORY C.DIFFICILE AND DIARRHEA. TODAY, SHE IS ALERT AND ORIETED, SITTING UP IN BED ON MORNING ROUNDS. SHE CONTINUES WITH COMPLAINTS OF MILD, DIFFUSE ABDOMINAL PAIN AND DIARRHEA. SHE ALSO REPORTS FECAL INCONTINENCE AND GENERALIZED WEAKNESS. ON EXAMINATION, HEART IS REGULAR IN RATE AND RHYTHM. BILATERAL LUNGS ARE CLEAR TO AUSCULTATION. ABDOMEN IS ROUND, SOFT, AND NOTED WITH MILD, DIFFUSE TENDERNESS ON PALPATION. HYPERACTIVE BOWEL SOUNDS ARE NOTED IN ALL QUADRANTS. THERE IS NORMAL RANGE OF MOTION NOTED TO ALL EXTREMITIES. HER VITALS THIS MORNING ARE 98.2-55-20-95%-129/ 57. LABS WERE OBTAINED. SHE REMAINS HEMODYNAMICALLY STABLE TODAY. STOOLS WERE POSITIVE FOR WHITE CELLS. TODAY, WE PLAN TO CONSULT WITH GASTROENTEROLOGY AND START ALBUMIN 25% IV DAILY FOR SLIGHTLY DECREASED ALBUMIN LEVELS. OTHERWISE, WE WILL CONTINUE WITH CURRENT PLAN OF CARE FOR C.DIFF. WE PLAN TO FOLLOW UP WITH AM LABS AND CONTINUE TO MONITOR PATIENT. - Past Medical Family Social History Past Med/Fam/Surg Hx: No changes since H&P Allergies: Allergies No Known Drug Allergies Allergy (Verified 12/18/16 16:53) - Review of Systems ROS: No change since H&P - Vital Signs and I&O's Vital Signs: Temperature 97.7 F Pulse Rate [Right Brachial] 54 Respiratory Rate 20 Blood Pressure [Left Arm] 134/63 Blood Pressure [Right Arm] 94/54 Blood Pressure 92/48 O2 Sat by Pulse Oximetry 98 Intake and Output: Intake & Output 07/24/17 07/25/17 07/26/17 07/27/17 11:59 11:59 11:59 11:59 Intake Total 1760 2270 3585 Output Total 800 5500 Balance 960 2270 -1915 - Physical Exam Oriented: Normal Eyes: Normal Ear: Normal Nose: Normal Throat: Normal Respiratory: Normal Cardiovascular: Normal : Normal Auscultation: Bowel Sounds: Normal Tenderness: Diffuse, Mild. negative: Rebound, Guarding, Rigidity Skin: Normal Musculoskeletal: Normal Psychiatric: Normal Mood Description: Calm Affect: Normal Speech Pattern: Clear, Appropriate - Laboratory and Diagnostics Result Diagrams: 07/26/17 06:15 07/26/17 06:15 Labs: 07/24/17 09:04 Stool Stool Culture - Preliminary 07/24/17 09:04 Stool - Final Laboratory WBC 4.5 X10^3/uL (3.6-10.0) 07/26/17 06:15 RBC 4.19 X10^6/uL (3.5-5.4) 07/26/17 06:15 Hgb 13.6 g/dL (12.0-16.0) 07/26/17 06:15 Hct 39.4 % (36.0-47.0) 07/26/17 06:15 MCV 94.0 fL (80.0-100.0) 07/26/17 06:15 MCH 32.4 pg (27.0-34.0) 07/26/17 06:15 MCHC 34.4 g/dL (33.0-35.0) 07/26/17 06:15 RDW 13.2 % (11.6-16.5) 07/26/17 06:15 Plt Count 235 X10^3/uL (150.0-450.0) 07/26/17 06:15 Plt Count Comment Adequate (ADEQUATE) 07/25/17 06:00 MPV 9.9 fL (7.4-11.0) 07/26/17 06:15 Neut % 44.3 % (42.0-75.0) 07/26/17 06:15 Lymph % 31.8 % (21.0-51.0) 07/26/17 06:15 [place] % 14.0 % (0.0-13.0) H 07/26/17 06:15 Eos % 8.9 % (0.9-2.9) H 07/26/17 06:15 Baso % 1.0 % (0.2-1.0) 07/26/17 06:15 Neut # 2.0 x10^3/uL (2.2-4.8) L 07/26/17 06:15 Lymph # 1.4 X10^3/uL (1.3-2.9) 07/26/17 06:15 [place] # 0.6 x10^3/uL (0.3-0.8) 07/26/17 06:15 Eos # 0.4 x10^3/uL (0.0-0.2) H 07/26/17 06:15 Baso # 0.0 X10^3/uL (0.0-0.1) 07/26/17 06:15 Absolute Nucleated RBC 0.2 /100WBC 07/26/17 06:15 Total Counted 100 07/24/17 05:00 Neutrophils % (Manual) 46 % (39-76) 07/24/17 05:00 Lymphocytes % (Manual) 40 % (13-43) 07/24/17 05:00 Monocytes % (Manual) 10 % (4-9) H 07/24/17 05:00 Eosinophils % (Manual) 4 % (0-6) 07/24/17 05:00 Plt Clumps, EDTA Few 07/25/17 06:00 Plt Morphology Comment Normal (NORMAL) 07/25/17 06:00 RBC Morphology Normal (NORMAL) 07/25/17 06:00 Sodium 143 mmol/L (136-145) 07/26/17 06:15 Corrected Sodium 145 mmol/L (136-145) 07/26/17 06:15 Potassium 3.6 mmol/L (3.5-5.1) 07/26/17 06:15 Chloride 106 mmol/L (98-107) 07/26/17 06:15 Carbon Dioxide 24.3 mmol/L (21-32) 07/26/17 06:15 BUN 11 mg/dL (7-18) 07/26/17 06:15 Creatinine 0.60 mg/dL (0.55-1.02) 07/26/17 06:15 Est GFR (MDRD) Af Amer > 60 (>60) 07/26/17 06:15 Est GFR (MDRD) Non-Af > 60 (>60) 07/26/17 06:15 Glucose 175 mg/dL (65-99) H 07/26/17 06:15 POC Glucose (mg/dL) 147 mg/dL (65-99) H 07/26/17 11:21 Calcium 9.4 mg/dL (8.5-10.1) 07/26/17 06:15 Corrected Calcium TNP 07/26/17 06:15 Total Bilirubin 1.00 mg/dL (0.2-1.0) 07/26/17 06:15 AST 36 Units/L (15-37) 07/26/17 06:15 ALT 46 Units/L (12-78) 07/26/17 06:15 Alkaline Phosphatase 50 Units/L (46-116) 07/26/17 06:15 Total Protein 7.2 g/dL (6.4-8.2) 07/26/17 06:15 Albumin 3.7 g/dL (3.4-5.0) 07/26/17 06:15 Globulin 3.5 g/dL (2.5-4.5) 07/26/17 06:15 Albumin/Globulin Ratio 1.1 Ratio (1.1-2.1) 07/26/17 06:15 Specimen Type Clean catch urine 07/23/17 20:38 Urine Color Yellow (YELLOW) 07/23/17 20:38 Urine Appearance Clear (CLEAR) 07/23/17 20:38 Urine pH 5.0 (5.0 - 8.0) 07/23/17 20:38 Ur Specific [place] 1.015 (1.000-1.030) 07/23/17 20:38 Urine Protein Negative (NEGATIVE) 07/23/17 20:38 Urine Glucose (UA) 4+ (NEGATIVE) 07/23/17 20:38 Urine Ketones Negative (NEGATIVE) 07/23/17 20:38 Urine Occult Blood Negative (NEGATIVE) 07/23/17 20:38 Urine Nitrite Negative (NEGATIVE) 07/23/17 20:38 Urine Bilirubin Negative (NEGATIVE) 07/23/17 20:38 Urine Urobilinogen Normal (NORMAL) 07/23/17 20:38 Ur Leukocyte Esterase Negative (NEGATIVE) 07/23/17 20:38 Urine RBC None seen /HPF (NONE SEEN) 07/23/17 20:38 Urine WBC None seen /HPF (NONE SEEN) 07/23/17 20:38 Ur Squamous Epith Cells Negative /HPF (NEGATIVE) 07/23/17 20:38 Urine Bacteria 1+ /HPF (NEGATIVE) 07/23/17 20:38 Ur Culture Indicated? No/not indicated 07/23/17 20:38 Stool Description [address] 07/24/17 09:04 Stl Occult Blood (IFOB) Negative (NEGATIVE) 07/24/17 09:04 Stool for White Cells Positive (NEGATIVE) A 07/24/17 09:04 Stl C. diff Tox B Gene Negative (NEGATIVE) 07/24/17 09:04 Stl C. diff [id number] Negative (NEGATIVE) 07/24/17 09:04 Cryptosporid parvum Ag Negative (NEGATIVE) 07/24/17 09:04 E. histolytica Antigen Negative (NEGATIVE) 07/24/17 09:04 Giardia lamblia Ag Negative (NEGATIVE) 07/24/17 09:04 - Plan (1) Diarrhea Status: Acute Qualifiers: Diarrhea type: presumed infectious Qualified Code(s): R19.7 - Diarrhea, unspecified Plan: VANCOMYCIN 250MG PO Q6H, CONTINUE TO MONITOR (2) Dehydration Status: Acute Plan: NORMAL SALINE AT 125ML/HR, CONTINUE TO MONITOR
[2017-07-26] MEDS: SYNTHROID 50 mcg TAB PO SCH (13:43)
[2017-07-26] MEDS ORDERED: ZOFRAN INJ 4 MG VIAL IVP PRN (14:29)
[2017-07-26] MEDS: HumuLIN R SUBCUT PRN ×2 (17:05→21:13)
[2017-07-26] MEDS: KLONOPIN TAB 0.5 MG PO SCH (20:27)
[2017-07-26] MEDS: SNACK - Diabetic Appropriate PO SCH (20:27)
[2017-07-27] MEDS: VANCOMYCIN HCL PO SCH ×4 (03:40→20:16)
[2017-07-27] MEDS: HumuLIN R SUBCUT PRN ×4 (05:57→20:24)
[2017-07-27] MEDS: SYNTHROID 50 mcg TAB PO SCH (06:00)
[2017-07-27 06:40] LABS: BASOPHILS % (AUTO) 0.7 % (0.2-1.0); EOSINOPHILS # (AUTO) 0.3 x10^3/uL (0.0-0.2); EOSINOPHILS % (AUTO) 5.8 % (0.9-2.9); HEMATOCRIT 33.5 % (36.0-47.0); HEMOGLOBIN 11.4 g/dL (12.0-16.0); LYMPHOCYTES # (AUTO) 1.9 X10^3/uL (1.3-2.9); MEAN CORPUSCULAR HEMOGLOBIN 32.2 pg (27.0-34.0); MEAN CORPUSCULAR HGB CONC 34.1 g/dL (33.0-35.0); MEAN CORPUSCULAR VOLUME 94.6 fL (80.0-100.0); MEAN PLATELET VOLUME 8.8 fL (7.4-11.0); MONOCYTES # (AUTO) 0.6 x10^3/uL (0.3-0.8); MONOCYTES % (AUTO) 11.8 % (0.0-13.0); NEUTROPHILS # (AUTO) 2.5 x10^3/uL (2.2-4.8); NEUTROPHILS % (AUTO) 46.7 % (42.0-75.0); PLATELET COUNT 270 X10^3/uL (150.0-450.0); RED BLOOD COUNT 3.54 X10^6/uL (3.5-5.4); RED CELL DISTRIBUTION WIDTH 13.3 % (11.6-16.5); WHITE BLOOD COUNT 5.4 X10^3/uL (3.6-10.0)
[2017-07-27 06:57] LABS: ALANINE AMINOTRANSFERASE 31 Units/L (12-78); ALBUMIN 3.3 g/dL (3.4-5.0); ALKALINE PHOSPHATASE 42 Units/L (46-116); ASPARTATE AMINO TRANSFERASE 15 Units/L (15-37); BLOOD UREA NITROGEN 19 mg/dL (7-18); CALCIUM 8.2 mg/dL (8.5-10.1); CARBON DIOXIDE 24.5 mmol/L (21-32); CHLORIDE 108 mmol/L (98-107); COR CA(FOR HYPOALB) 8.8 mg/dL (8.5-10.1); COR NA(FOR HYPERGLY) 144 mmol/L (136-145); CREATININE 0.61 mg/dL (0.55-1.02); SODIUM 141 mmol/L (136-145); eGFR BLACK RACES > 60 (>60); eGFR NON BLACK RACES > 60 (>60)
[2017-07-27] MEDS: ARIMIDEX PO SCH (08:55)
[2017-07-27] MEDS: COREG TAB 6.25 MG PO SCH ×2 (08:55→20:17)
[2017-07-27] MEDS: OXYBUTYNIN CHLORIDE ER PO SCH (08:55)
[2017-07-27] MEDS: LYRICA CAP 100 MG PO SCH ×2 (08:55→20:17)
[2017-07-27] MEDS: PEPCID TAB 20 MG PO SCH ×2 (08:56→20:17)
[2017-07-27] MEDS: ZOCOR TAB 20 MG PO SCH (08:56)
[2017-07-27] MEDS: DAPAGLIFLOZIN PROPANEDIOL 5 MG PO SCH (08:56)
[2017-07-27] MEDS: ALBUMIN HUMAN 25%- 100ML 100 ML IV SCH (08:57)
[2017-07-27] MEDS: KLONOPIN TAB 0.5 MG PO SCH (20:16)
[2017-07-27] MEDS: SNACK - Diabetic Appropriate PO SCH (20:17)
[2017-07-27] MEDS: NS 1000 ML 1,000 ML IV SCH (23:15)
[2017-07-28] MEDS: VANCOMYCIN HCL PO SCH ×2 (03:24→09:11)
[2017-07-28 05:33] LABS: BASOPHILS # (AUTO) 0.1 X10^3/uL (0.0-0.1); BASOPHILS % (AUTO) 2.1 % (0.2-1.0); EOSINOPHILS # (AUTO) 0.4 x10^3/uL (0.0-0.2); EOSINOPHILS % (AUTO) 8.4 % (0.9-2.9); HEMATOCRIT 35.6 % (36.0-47.0); HEMOGLOBIN 12.2 g/dL (12.0-16.0); LYMPHOCYTES # (AUTO) 1.9 X10^3/uL (1.3-2.9); MEAN CORPUSCULAR HEMOGLOBIN 32.1 pg (27.0-34.0); MEAN CORPUSCULAR HGB CONC 34.3 g/dL (33.0-35.0); MEAN CORPUSCULAR VOLUME 93.7 fL (80.0-100.0); MEAN PLATELET VOLUME 8.5 fL (7.4-11.0); MONOCYTES # (AUTO) 0.6 x10^3/uL (0.3-0.8); MONOCYTES % (AUTO) 13.1 % (0.0-13.0); NEUTROPHILS # (AUTO) 1.7 x10^3/uL (2.2-4.8); NEUTROPHILS % (AUTO) 36.4 % (42.0-75.0); PLATELET COUNT 299 X10^3/uL (150.0-450.0); RED CELL DISTRIBUTION WIDTH 13.1 % (11.6-16.5); WHITE BLOOD COUNT 4.8 X10^3/uL (3.6-10.0)
[2017-07-28 05:47] LABS: ALANINE AMINOTRANSFERASE 33 Units/L (12-78); ALBUMIN 3.8 g/dL (3.4-5.0); ALKALINE PHOSPHATASE 41 Units/L (46-116); ASPARTATE AMINO TRANSFERASE 21 Units/L (15-37); BLOOD UREA NITROGEN 18 mg/dL (7-18); CALCIUM 8.7 mg/dL (8.5-10.1); CARBON DIOXIDE 25.8 mmol/L (21-32); CHLORIDE 106 mmol/L (98-107); COR NA(FOR HYPERGLY) 144 mmol/L (136-145); SODIUM 142 mmol/L (136-145); TOTAL PROTEIN 6.6 g/dL (6.4-8.2); eGFR BLACK RACES > 60 (>60); eGFR NON BLACK RACES > 60 (>60)
[2017-07-28] MEDS: SYNTHROID 50 mcg TAB PO SCH (06:02)
[2017-07-28 07:39] VITALS: BP 138/64
[2017-07-28] MEDS: ALBUMIN HUMAN 25%- 100ML 100 ML IV SCH (08:54)
[2017-07-28] MEDS: COREG TAB 6.25 MG PO SCH (09:10)
[2017-07-28] MEDS: ARIMIDEX PO SCH (09:10)
[2017-07-28] MEDS: OXYBUTYNIN CHLORIDE ER PO SCH (09:10)
[2017-07-28] MEDS: LYRICA CAP 100 MG PO SCH (09:10)
[2017-07-28] MEDS: DAPAGLIFLOZIN PROPANEDIOL 5 MG PO SCH (09:10)
[2017-07-28] MEDS: PEPCID TAB 20 MG PO SCH (09:11)
[2017-07-28] MEDS: ZOCOR TAB 20 MG PO SCH (09:11)
== END 2017-07-28 10:30 | disposition home or self-care (01) | DRG 372 ==
LOC: MED/SURG 11:33 → OBSVTOIN 07-25 10:00
PROVIDERS: ADMIT Internal Medicine; ATTEND Internal Medicine
PROC: 0DBE8ZX Excision of Large Intestine, Via Natural or Artificial Opening Endoscopic, Diagnostic (ICD-10-PCS; 2017-07-26)
PROC: 0DBL8ZX Excision of Transverse Colon, Via Natural or Artificial Opening Endoscopic, Diagnostic (ICD-10-PCS; 2017-07-26)
PROC: 0DBM8ZX Excision of Descending Colon, Via Natural or Artificial Opening Endoscopic, Diagnostic (ICD-10-PCS; 2017-07-26)
PROC: 0DBK8ZX Excision of Ascending Colon, Via Natural or Artificial Opening Endoscopic, Diagnostic (ICD-10-PCS; principal; 2017-07-26 19:30)
DX: A04.71 Enterocolitis due to Clostridium difficile, recurrent (principal); R19.7 Diarrhea, unspecified; E86.0 Dehydration; R10.84 Generalized abdominal pain; R19.4 Change in bowel habit; B37.3 Candidiasis of vulva and vagina; E11.65 Type 2 diabetes mellitus with hyperglycemia; I10 Essential (primary) hypertension; E03.8 Other specified hypothyroidism; E55.9 Vitamin D deficiency, unspecified; E51.9 Thiamine deficiency, unspecified; I25.10 Atherosclerotic heart disease of native coronary artery without angina pectoris; K21.9 Gastro-esophageal reflux disease without esophagitis; K52.89 Other specified noninfective gastroenteritis and colitis; K64.8 Other hemorrhoids; D12.2 Benign neoplasm of ascending colon; D12.4 Benign neoplasm of descending colon
CPT/HCPCS: 36415; 80053; 81001; 82270; 83630; 85025; 87045; 87328; 87329; 87336; 87338; 87427; 87493; 87899; 88304; A4216; A4222; P9047; S0170; A4217; G0378; J1815; J2001; J2405; J3490

== ENCOUNTER → 2017-08-15 | Outpatient (CLI) | payer OTHER, MEDICARE ==
[2017-07-28 07:39] VITALS: BP 138/64
[2017-08-15 09:02] LABS: BASOPHILS # (AUTO) 0.1 X10^3/uL (0.0-0.1); BASOPHILS % (AUTO) 1.5 % (0.2-1.0); EOSINOPHILS # (AUTO) 0.3 x10^3/uL (0.0-0.2); EOSINOPHILS % (AUTO) 5.3 % (0.9-2.9); HEMATOCRIT 39.4 % (36.0-47.0); HEMOGLOBIN 13.6 g/dL (12.0-16.0); LYMPHOCYTES # (AUTO) 1.5 X10^3/uL (1.3-2.9); LYMPHOCYTES % (AUTO) 28.4 % (21.0-51.0); MEAN CORPUSCULAR HEMOGLOBIN 32.4 pg (27.0-34.0); MEAN CORPUSCULAR HGB CONC 34.6 g/dL (33.0-35.0); MEAN CORPUSCULAR VOLUME 93.8 fL (80.0-100.0); MONOCYTES # (AUTO) 0.5 x10^3/uL (0.3-0.8); MONOCYTES % (AUTO) 10.3 % (0.0-13.0); NEUTROPHILS # (AUTO) 2.9 x10^3/uL (2.2-4.8); NEUTROPHILS % (AUTO) 54.5 % (42.0-75.0); PLATELET COUNT 336 X10^3/uL (150.0-450.0); RED CELL DISTRIBUTION WIDTH 13.2 % (11.6-16.5); WHITE BLOOD COUNT 5.2 X10^3/uL (3.6-10.0)
[2017-08-15 09:38] LABS: STOOL FOR WBC POSITIVE (NEGATIVE)
[2017-08-15 10:16] LABS: CRYPTOSPORIDIUM PARVUM ANTIGEN NEGATIVE (NEGATIVE); GIARDIA LAMBLIA ANTIGEN NEGATIVE (NEGATIVE)
== END ==
LOC: LAB 08:37
PROVIDERS: ATTEND Internal Medicine Gastroenterology
DX: K59.1 Functional diarrhea (principal); K64.0 First degree hemorrhoids; R19.5 Other fecal abnormalities
CPT/HCPCS: 36415; 82274; 82705; 83630; 85025; 87045; 87328; 87329; 87336; 87427; 87449; 87493